=== PATIENT | male | born 1955 | race Caucasian/White ===

== ENCOUNTER 2022-12-19 14:17 | Emergency (ER) | payer MEDICARE, SELFPAY ==
[2022-12-19 14:29] VITALS: BP 153/69; PULSE 62; RESP 16; TEMP 37.1; O2SAT 99
--- NOTE | 2022-12-19 14:41 | ED.SKABFB ---
HPI - Skin/Abscess/Foreign Bdy General Chief complaint: Skin/Abscess/Foreign Body Stated complaint: Hives Time Seen by Provider: 12/19/22 14:40 Source: patient Mode of arrival: ambulatory Limitations: no limitations History of Present Illness HPI narrative: 67 y/o male with hx HTN and DM2, presented for c/o allergic reaction for 2 days. Endorses lip swelling worse yesterday, hoarse voice, and chin swelling with drainage today. Also reports hives to arms, legs and lower abdomen. States he only wanted evaluation because his voice changed today. Patient states he may have been stung by a bee 2 days ago, endorses allergy. Also new to amlodipine since last week, also taking JOHN-I. Currently denies sob, wheezing, dizziness, nausea, vomiting or lethargy. denies difficulty swallowing or maintaining secretions. Taking Benadryl at home, last dose 1230. Related Data Home Medications Medication Instructions Recorded Confirmed aspirin 81 mg tablet,delayed 81 mg PO DAILY 10/21/19 12/12/22 release (Aspir-) omega-3 fatty acids 1,000 mg 1,000 mg PO BID 04/25/20 12/12/22 capsule (Fish Oil Concentrate) trazodone 50 mg tablet 50 mg PO .at bedtime PRN 05/08/21 12/12/22 celecoxib 200 mg capsule 200 mg PO BID 12/19/22 Allergies Allergy/AdvReac Type Severity Reaction Status Date / Time Penicillins Allergy Severe ITCHING Verified 12/12/22 08:46 bee pollen Allergy Hives Verified 12/19/22 14:32 Review of Systems Review of Systems: CONSTITUTIONAL: Denies body aches, fever, chills, or sweats. EYES: Denies visual changes, redness, or discharge. ENT: Denies rhinorrhea, congestion CARDIOVASCULAR: Denies chest pain, palpitations, or edema. RESPIRATORY: Denies cough or dyspnea. GASTROINTESTINAL: Denies abdominal pain, nausea, vomiting, or diarrhea. SKIN: per HPI MUSCULOSKELETAL: Denies back pain, joint pain, or myalgia. NEUROLOGIC: Denies headache, numbness, tingling, or weakness. [facility] Past Medical History Medical History Diverticulitis Screening for colon cancer Surgical History Surgical History History of arthroscopy of right knee Family History Family History Mother Cerebrovascular accident Family history of Alzheimer's disease Family history of heart disease in male family member before age 55 Patient's mother is , Onset Age: 95 Father Family history of malignant neoplasm Other Carcinoma of colon Diabetes mellitus Family history of cardiovascular disease Hypertension Social History Social History Smoking packs per day: 0.75 Smoking cigarettes per day: 15.0 Years smoked: 35 Smoking pack-years: 26.25 Smoking status: Former smoker Tobacco type: cigarettes Second hand tobacco smoke exposure: Yes Smoking end date: 10/14/78 Alcohol intake: current Drinks per week: 2 Alcohol use details: social Substance use: never Substance use type: does not use Lack of Transportation: No Lack of Food: Never True Current Housing: I Have Housing Concerned About Future Housing: No Difficulty Paying Gas/Electric Bills: No Difficulty Paying for Meds: No Currently Unemployed: No Education: Master's Degree or Higher Difficulty w/ Childcare or Family Care: No Comments At time of signature, I have reviewed and agree with nursing past medical, surgical, social and family history unless otherwise noted. Please see nursing chart for further information. There is no relevant family history pertinent to the presenting complaint Exam Narrative: GENERAL: Well-appearing HEAD: Normocephalic, atraumatic. EYES: conjunctivae clear, and EOMI. ENT: Mucous membranes moist. voice mildly hoarse. Oropharynx without edema, erythema or lesions. Lips mildly sw
[2022-12-19] MEDS: methylPREDNISolone SOD SUCC 125 MG VIAL IM (14:48)
== END 2022-12-19 15:02 | disposition home or self-care (01) ==
PROVIDERS: Emergency Provider Nurse Practitioner Family; PCP Internal Medicine
DX: T78.40XA Allergy, unspecified, initial encounter (principal); I10 Essential (primary) hypertension; E11.9 Type 2 diabetes mellitus without complications; Z87.891 Personal history of nicotine dependence
CPT/HCPCS: 99212; G0463; J2930

== ENCOUNTER 2022-12-19 15:20 | Emergency (ER) | payer MEDICARE, SELFPAY ==
--- NOTE | ~2022-12-19 | CT_ITS ---
EXAMINATION: CT soft tissue neck w con DATE: 12/19/2022 17:30 INDICATION: TECHNIQUE: Computed tomography (CT) of the neck was performed with 75 mL Omnipaque-350 intravenous co ntrast. The dose-length product was 639.00 mGy-cm. COMPARISON: None FINDINGS: Subcentimeter right thyroid lobe hypodensity, requiring no additional evaluation. The submandibular and parotid glands are symmetric. There is no cervical lymphadenopathy. There are no masses ident ified. The superior mediastinum is unremarkable. The airway is unremarkable. Parapharyngeal an d pre-glottic fat planes are preserved. Moderate aortic arch calcification. Mild left carotid bifur cation calcified plaque. The orbits are unremarkable. Visualized sinuses and mastoid air cells are well aerated. No significant lung abnormality. There is cervical spondylosis. IMPRESSION: Unremarkable CT soft tissue neck findings. Reviewed, dictated and finalized at location K. [employer]OR SPEECH
[2022-12-19 15:23] VITALS: BP 156/82; PULSE 61; RESP 17; TEMP 36.6; O2SAT 100
--- NOTE | 2022-12-19 15:35 | ECG_ITS ---
Measurements Intervals Ider Rate: 59 P: 66 LA: 205 QRS: -45 QRSD: 113 T: 22 QT: 413 QTc: 412 Interpretive Statements SINUS BRADYCARDIA BORDERLINE AV CONDUCTION DELAY LEFT ANTERIOR FASCICULAR BLOCK BASELINE ARTIFACT- I, III, AVR, AVL, AVF, V1, V3-V6 ABNORMAL ECG NO PREVIOUS ECG AVAILABLE FOR COMPARISON Electronically Signed On 12-19-2022 15:45:22 [employer] by Samir Saab D.O.
--- NOTE | 2022-12-19 15:45 | ED.ALLEREA ---
HPI - Allergic Reaction General Chief complaint: Allergic Reaction Stated complaint: facial swelling Time Seen by Provider: 12/19/22 15:35 History of Present Illness HPI narrative: Patient is a 67-year-old male with a history of hypertension, hyperlipidemia presenting with facial swelling. Patient states that for the last 2 days he has had diffuse hives. States he has been using Benadryl with some relief. States that yesterday his lips looked very swollen and his voice became hoarse. Today, his lips have improved significantly but his voice continues to sound hoarse so he came in for evaluation. He denies tongue or throat swelling. Denies difficulty breathing or shortness of breath. No nausea or vomiting. States he continues to have hives. His is at bedside and states that his voice is starting to sound better. Patient does complain of mild sore throat. No fevers or chills, chest pain, cough, abdominal pain, lightheadedness. Related Data Home Medications Medication Instructions Recorded Confirmed aspirin 81 mg tablet,delayed 81 mg PO DAILY 10/21/19 12/20/22 release (Aspir-) omega-3 fatty acids 1,000 mg 1,000 mg PO BID 04/25/20 12/20/22 capsule (Fish Oil Concentrate) trazodone 50 mg tablet 50 mg PO .at bedtime PRN Sleep 05/08/21 12/20/22 celecoxib 200 mg capsule 200 mg PO BID 12/19/22 12/20/22 Allergies Allergy/AdvReac Type Severity Reaction Status Date / Time Penicillins Allergy Severe ITCHING Verified 12/12/22 08:46 bee pollen Allergy Hives Verified 12/19/22 14:32 Review of Systems Review of Systems: All systems reviewed & are unremarkable except as noted in HPI and below PMFSH Past Medical History Medical History Diverticulitis Screening for colon cancer Surgical History Surgical History History of arthroscopy of right knee Family History Family History Mother Cerebrovascular accident Family history of Alzheimer's disease Family history of heart disease in male family member before age 55 Patient's mother is , Onset Age: 95 Father Family history of malignant neoplasm Other Carcinoma of colon Diabetes mellitus Family history of cardiovascular disease Hypertension Social History Social History Smoking packs per day: 0.75 Smoking cigarettes per day: 15.0 Years smoked: 35 Smoking pack-years: 26.25 Smoking status: Former smoker Tobacco type: cigarettes Second hand tobacco smoke exposure: Yes Smoking end date: 10/14/78 Alcohol intake: current Drinks per week: 1 Alcohol use details: social Substance use: never Substance use type: does not use Lack of Transportation: No Lack of Food: Never True Current Housing: I Have Housing Concerned About Future Housing: No Difficulty Paying Gas/Electric Bills: No Difficulty Paying for Meds: No Currently Unemployed: No Education: Master's Degree or Higher Difficulty w/ Childcare or Family Care: No Living arrangements: with family Spiritual care concerns: No Exam Narrative: GENERAL: Well-appearing, well-nourished, and in no acute distress. HEAD: Normocephalic, atraumatic. EYES: PERRLA and EOMI. ENT: Nares clear, no rhinorrhea or epistaxis. Mucous membranes moist. no lip swelling appreciated, no tongue or throat swelling; voice is mildly hoarse NECK: Supple. CHEST: Clear to auscultation. No respiratory distress. no wheezing HEART: Regular rate and rhythm. Normal peripheral pulses. ABDOMEN: Soft, nontender, nondistended EXTREMITIES: Normal range of motion. No edema. SKIN: Warm, dry, no rash. hives on all extremities and torso; yellow crusting over chin hair NEURO: No focal deficits. Alert and oriented x3. PSYCH: Normal mood and affect. Course
[2022-12-19 15:46] VITALS: BP 158/93; PULSE 59; RESP 12; O2SAT 100
[2022-12-19 15:55] LABS: Hematocrit 48.9 % (42.0-52.0); Hemoglobin 16.2 g/dL (14.0-18.0); Immature Platelet Fraction Pct 11.3 % (0.9-11.2); Mean Corpuscular HGB Conc 33.1 g/dl (32-36); Mean Corpuscular Hemoglobin 32.2 pg (26-34); Mean Corpuscular Volume 97.2 fl (80-100); Red Blood Count 5.03 M/mm3 (4.6-6.20); Red Cell Distribution Width 13.5 % (11.5-14.5); White Blood Count 13.5 K/mm3 (4.5-10.0)
[2022-12-19] MEDS: SODIUM CHLORIDE 0.9% IV 1,000 ML 999 ML IV CONT (16:02)
[2022-12-19] MEDS: FAMOTIDINE 20 MG/2 ML VIAL IV PUSH (16:03)
[2022-12-19 16:20] LABS: Band Neutrophils Percent 1 % (0-6); Eosinophils Absolute Manual 0.13 K/mm3 (0.02-0.5); Eosinophils Percent Manual 1 % (0-4); Lymphocytes Absolute Manual 2.16 K/mm3 (1.1-4.5); Monocytes Absolute Manual 0.67 K/mm3 (0.1-0.90); Monocytes Percent Manual 5 % (3-9); Neutrophils Absolute Manual 10.53 K/mm3 (1.3-6.7); Neutrophils Percent Manual 77 % (46-73); Platelet Estimate Adequate (Adequate); Schistocytes None Seen (NORMAL); Total Cells Counted 100
[2022-12-19 16:21] LABS: Atypical Lymphocytes Present
[2022-12-19 16:22] LABS: Large Platelets Present
[2022-12-19 16:26] LABS: Strep Group A RT-PCR NOT DETECTED (Negative)
[2022-12-19 16:48] VITALS: BP 141/76; PULSE 60; RESP 13; O2SAT 99
[2022-12-19 16:55] LABS: Anion Gap 8 mmol/L (8-16); Blood Urea Nitrogen 15 mg/dL (9-20); Carbon Dioxide 27 mmol/L (22-30); Chloride 100 mmol/L (98-107); Estimated CRCL calculation 66 ml/min; Estimated Glomerular Filt Rate > 60; Glucose 121 mg/dL (65-110); Potassium 5.1 mmol/L (3.4-5.0); Sodium 135 mmol/L (137-145)
[2022-12-19 18:41] VITALS: BP 139/71; PULSE 66; RESP 15; O2SAT 97
[2022-12-19 19:43] VITALS: BP 136/77; PULSE 65; RESP 18; O2SAT 97
== END 2022-12-19 19:45 | disposition home or self-care (01) ==
PROVIDERS: Emergency Provider Emergency Medicine; PCP Internal Medicine
DX: T78.40XA Allergy, unspecified, initial encounter (principal); Z20.822 Contact with and (suspected) exposure to COVID-19; I10 Essential (primary) hypertension; E78.5 Hyperlipidemia, unspecified; Z87.891 Personal history of nicotine dependence; Z79.82 Long term (current) use of aspirin
CPT/HCPCS: 36415; 70491; 80048; 85025; 85055; 87651; 93005; 96361; 96374; 99284; J2930; J7030; Q9967

== ENCOUNTER 2023-01-03 01:03 | Day surgery (SDC) | payer MEDICARE, SELFPAY ==
[2022-12-20 13:06] VITALS: BMI 36.6
--- NOTE | 2023-01-02 16:50 | PM.HPGS ---
History of Present Illness History of Present Illness Consent: Risks, benefits, and alternatives have been discussed and questions answered. Patient agrees to proceed with procedure. Chief complaint: hx colon polyps Narrative: Lennox Beaulieu is a 67 year old male referred for colon cancer screening. He has a history of polyps. His last colonoscopy was about 5 years ago. Review of Systems Review of Systems: All systems reviewed & are unremarkable except as noted in HPI and below PMFSH Past Medical History Medical History COVID-19 virus detected Diverticulitis Essential (primary) hypertension Kidney stones Mixed hyperlipidemia SHAVON on CPAP Screening for colon cancer Type 2 diabetes mellitus without complications Surgical History Surgical History History of arthroscopy of right knee Family History Family History Mother Cerebrovascular accident Family history of Alzheimer's disease Family history of heart disease in male family member before age 55 Patient's mother is , Onset Age: 95 Father Family history of malignant neoplasm Other Carcinoma of colon Diabetes mellitus Family history of cardiovascular disease Hypertension Social History Social History Smoking packs per day: 0.75 Smoking cigarettes per day: 15.0 Years smoked: 35 Smoking pack-years: 26.25 Smoking status: Former smoker Tobacco type: cigarettes Second hand tobacco smoke exposure: Yes Smoking end date: 10/14/78 Alcohol intake: current Drinks per week: 1 Alcohol use details: social Substance use: never Substance use type: does not use Lack of Transportation: No Lack of Food: Never True Current Housing: I Have Housing Concerned About Future Housing: No Difficulty Paying Gas/Electric Bills: No Difficulty Paying for Meds: No Currently Unemployed: No Education: Master's Degree or Higher Difficulty w/ Childcare or Family Care: No Living arrangements: with family Spiritual care concerns: No Meds Home Medications and Allergies Home Medications Medication Instructions Recorded Confirmed Type aspirin 81 mg tablet,delayed 81 mg PO DAILY 10/21/19 12/24/22 History release (Aspir-) omega-3 fatty acids 1,000 mg 1,000 mg PO BID 04/25/20 12/24/22 History capsule (Fish Oil Concentrate) trazodone 50 mg tablet 50 mg PO .at bedtime PRN Sleep 05/08/21 12/24/22 History lisinopril 20 mg tablet 20 mg PO DAILY #90 tabs 11/06/22 12/24/22 Rx metformin 500 mg tablet 500 mg PO BID #180 tabs 11/06/22 12/24/22 Rx rosuvastatin 10 mg tablet See Rx Instructions .Route 11/06/22 12/24/22 Rx .COMPLEX #90 tabs celecoxib 200 mg capsule 200 mg PO BID 12/19/22 12/24/22 History famotidine 20 mg tablet (Pepcid) 20 mg PO DAILY #20 tabs 12/19/22 12/24/22 Rx doxazosin 4 mg tablet (Cardura) 4 mg PO DAILY #30 tabs 12/24/22 01/01/23 Rx Allergies Allergy/AdvReac Type Severity Reaction Status Date / Time amlodipine Allergy Severe Swelling Verified 01/03/23 09:05 of Lip/Tongue/Throat Penicillins Allergy Severe ITCHING Verified 01/03/23 09:05 bee pollen Allergy Hives Verified 01/03/23 09:05 Exam Resp: Auscultation: clear to auscultation bilaterally Cardio: Rate: regular rate Rhythm: regular rhythm GI: GI Palp: Yes Soft to palpation and No Tenderness to palpation present (GI) Assessment and Plan Assessment and plan (1) Screening for colon cancer: Code(s): Z12.11 - Encounter for screening for malignant neoplasm of colon Status: Acute Assessment and Plan: Colonoscopy with possible biopsy or polypectomy or cautery or injection of substances.
--- NOTE | 2023-01-03 07:37 | WPDANESEPPF ---
Anes - Initial Pre Proc Eval Procedure: Operation Date: 01/03/23 10:00 Proposed Procedures p Colonoscopy - Emiliano Belle MD Date/Time: 01/03/23 07:37 Surgeon: Emiliano Belle MD Pre Op Diagnosis: hx colon polyps Patient Data Age: 67 Gender: M Height: 1.7 m Weight: 106 kg Allergies Allergy/AdvReac Type Severity Reaction Status Date / Time amlodipine Allergy Severe Swelling Verified 01/03/23 09:05 of Lip/Tongue/Throat Penicillins Allergy Severe ITCHING Verified 01/03/23 09:05 bee pollen Allergy Hives Verified 01/03/23 09:05 Home Medications Medication Instructions Recorded Confirmed Type aspirin 81 mg tablet,delayed 81 mg PO DAILY 10/21/19 12/24/22 History release (Aspir-) omega-3 fatty acids 1,000 mg 1,000 mg PO BID 04/25/20 12/24/22 History capsule (Fish Oil Concentrate) trazodone 50 mg tablet 50 mg PO .at bedtime PRN Sleep 05/08/21 12/24/22 History lisinopril 20 mg tablet 20 mg PO DAILY #90 tabs 11/06/22 12/24/22 Rx metformin 500 mg tablet 500 mg PO BID #180 tabs 11/06/22 12/24/22 Rx rosuvastatin 10 mg tablet See Rx Instructions .Route 11/06/22 12/24/22 Rx .COMPLEX #90 tabs celecoxib 200 mg capsule 200 mg PO BID 12/19/22 12/24/22 History famotidine 20 mg tablet (Pepcid) 20 mg PO DAILY #20 tabs 12/19/22 12/24/22 Rx doxazosin 4 mg tablet (Cardura) 4 mg PO DAILY #30 tabs 12/24/22 01/01/23 Rx Patient hx anesthesia problems: none Family hx anesthesia problems: none Results Review: All pre-operative results and documents have been reviewed as part of the pre-operative evaluation. [facility] Past Medical History Medical History (Updated 12/24/22 @ 15:06 by Arleen Palacio MD) COVID-19 virus detected Diverticulitis Essential (primary) hypertension Kidney stones Mixed hyperlipidemia SHAVON on CPAP Screening for colon cancer Type 2 diabetes mellitus without complications Surgical History Surgical History History of arthroscopy of right knee Family History Family History Mother Cerebrovascular accident Family history of Alzheimer's disease Family history of heart disease in male family member before age 55 Patient's mother is , Onset Age: 95 Father Family history of malignant neoplasm Other Carcinoma of colon Diabetes mellitus Family history of cardiovascular disease Hypertension Social History Social History Smoking packs per day: 0.75 Smoking cigarettes per day: 15.0 Years smoked: 35 Smoking pack-years: 26.25 Smoking status: Former smoker Tobacco type: cigarettes Second hand tobacco smoke exposure: Yes Smoking end date: 10/14/78 Alcohol intake: current Drinks per week: 1 Alcohol use details: social Substance use: never Substance use type: does not use Lack of Transportation: No Lack of Food: Never True Current Housing: I Have Housing Concerned About Future Housing: No Difficulty Paying Gas/Electric Bills: No Difficulty Paying for Meds: No Currently Unemployed: No Education: Master's Degree or Higher Difficulty w/ Childcare or Family Care: No Living arrangements: with family Spiritual care concerns: No Anes - Eval Final PreProcedure Day of Procedure 01/03/23 07:37 Patient weight: obese Heart: regular rate and rhythm Lungs: clear to auscultation Airway: Mallampati scale class II Neurological: alert and oriented Last oral intake: >/= 8 hours ASA classification: III Emergent: no Anesthetic plan: proceed Anesthesia type and monitoring: general GIVS and standard monitoring Results Review: All pre-operative results and documents have been reviewed as part of the pre-operative evaluation. Informed Consent: The patient's anesthetic plan and its attendant risks and benefits were discussed with the patient/family/POA.
[2023-01-03 09:09] VITALS: BP 108/52; PULSE 65; RESP 18; TEMP 36.5; O2SAT 98
[2023-01-03] MEDS: LACTATED RINGERS 1,000 ML 150 ML IV CONT (09:26)
[2023-01-03 09:30] LABS: Glucose Point of Care 130 mg/dl (65-105)
[2023-01-03 10:12] VITALS: BP 99/59; PULSE 49; RESP 18; O2SAT 93
[2023-01-03 10:22] VITALS: BP 99/64; PULSE 48; RESP 16; O2SAT 96
[2023-01-03 10:31] VITALS: BP 116/71; PULSE 49; RESP 16; O2SAT 97
== END 2023-01-03 10:34 | disposition home or self-care (01) ==
PROVIDERS: PCP Internal Medicine; Visit Provider Internal Medicine Gastroenterology
PROC: 0DJD8ZZ Inspection of Lower Intestinal Tract, Via Natural or Artificial Opening Endoscopic (ICD-10-PCS; CPT 45378; principal; 2023-01-03 10:00)
DX: Z12.11 Encounter for screening for malignant neoplasm of colon (principal); K57.30 Diverticulosis of large intestine without perforation or abscess without bleeding; Z86.010 Personal history of colon polyps; I10 Essential (primary) hypertension; E11.9 Type 2 diabetes mellitus without complications; E78.2 Mixed hyperlipidemia; G47.33 Obstructive sleep apnea (adult) (pediatric); Z87.891 Personal history of nicotine dependence; Z79.84 Long term (current) use of oral hypoglycemic drugs; Z79.82 Long term (current) use of aspirin; E66.9 Obesity, unspecified; Z68.34 Body mass index [BMI] 34.0-34.9, adult
CPT/HCPCS: G0105; 82948; J2001; J2704; J7120

== ENCOUNTER 2024-06-23 08:31 | Outpatient (CLI) | payer MEDICARE, SELFPAY ==
--- NOTE | ~2024-06-23 | CT_ITS ---
EXAMINATION:CT lung screening DATE: 06/23/2024 08:58 INDICATION: Personal history of nicotine dependence. Smoker who quit 14 years ago with 23 pack year h istory. TECHNIQUE: Computed tomography (CT) of the chest was performed without intravenous contrast. Automate d exposure control and iterative reconstruction technique were employed. The dose-length product (DLP ) was 276.99 mGy-cm. COMPARISON: None. FINDINGS: Calcified right lung nodules and calcified right hilar mediastinal lymph nodes are consiste nt with old granulomatous disease. There are 4 mm and 2 mm nodules in the lingula. No pleural effusio n. The heart size is normal. There are coronary artery calcifications. No pericardial effusion. There is a 10 mm nodule in right thyroid lobe, likely not clinically significant. Calcifications in the li iona and spleen are consistent with old granulomatous disease. There are old healed right rib fracture s. There is mild thoracic spondylosis and severe cervical spondylosis. IMPRESSION: 1. Lung-RADS category 2: Benign appearance or behavior. Continue annual screening with noncontrast lo w-dose chest CT in 12 months. Reviewed, dictated and finalized at location A. IMPRESSION: 1. Lung-RADS category 2: Benign appearance or behavior. Continue annual screeni ng with noncontrast low-dose chest CT in 12 months.
== END 2024-06-23 08:32 | disposition home or self-care (01) ==
LOC: ANHIMG 08:33
PROVIDERS: PCP Nurse Practitioner Family; Visit Provider Nurse Practitioner Family
DX: Z12.2 Encounter for screening for malignant neoplasm of respiratory organs (principal); Z87.891 Personal history of nicotine dependence
CPT/HCPCS: 71271

== ENCOUNTER 2025-06-24 09:34 | Outpatient (CLI) | payer MEDICARE, SELFPAY ==
--- NOTE | ~2025-06-24 | CT_ITS ---
EXAMINATION:CT lung screening DATE: 06/24/2025 09:50 INDICATION: Personal history of nicotine dependence. Smoker who quit 14 years ago with 20 pack year history. TECHNIQUE: Computed tomography (CT) of the chest was performed without intravenous contrast. Automated exposure control and iterative reconstruction technique were employed. The dose-length product (DLP) was 279.43 mGy-cm. COMPARISON: Chest CT 06/23/2024 FINDINGS: Calcified pulmonary nodules and calcified right hilar and mediastinal lymph nodes are consistent with old granulomatous disease. There is mild atelectasis bilaterally. There is a 3 mm nodule in left lower lobe. There are 3 mm and 4 mm nodules in lingula without change. No pleural effusion. The heart size is normal. No pericardial effusion. There are coronary artery calcifications. There is mild bilateral gynecomastia. Calcifications in the spleen are consistent with old granulomatous disease. There are old healed right rib fractures. There is moderate thoracic spondylosis. IMPRESSION: 1. Lung-RADS category 2: Benign appearance or behavior. Continue annual screening with noncontrast low-dose chest CT in 12 months. Reviewed, dictated and finalized at location E. IMPRESSION: 1. Lung-RADS category 2: Benign appearance or behavior. Continue annual screeni ng with noncontrast low-dose chest CT in 12 months.
--- OUTSIDE RECORDS SUMMARY | 2025-06-24 10:21 | XMS_ITS | Clinical Summary ---
Author Organization [facility] [address] Address [address] [place] [id number] Care Team Providers Care Senior Qc Technician Name Role Phone Shantel Montague NP Primary Care Provider [phone] Allergies Active Allergy Reactions Criticality Noted Date Comments Penicillins Venom-Honey Bee Medications hydroCHLOROthia zide (HYDRODIURIL) 25 mg tablet Take 1 tablet (25 mg total) by mouth daily 5 Active lisinopriL (PRINIVIL,ZESTR IL) 20 mg tablet Take 1 tablet (20 mg total) by mouth daily 5 Active celecoxib (CeleBREX) 200 mg capsule Take 1 capsule (200 mg total) by mouth 2 (two) times a day 5 Active metFORMIN (GLUCOPHAGE) 500 mg tablet Take 1 tablet (500 mg total) by mouth 2 (two) times a day 5 Active rosuvastatin (CRESTOR) 10 mg tablet Take 1 tablet (10 mg total) by mouth daily 5 Active traZODone (DESYREL) 50 mg tablet Take 1 tablet (50 mg total) by mouth nightly 5 Active xvknzlpj-yssl-z in-folic acid 18-0.4 mg tablet Take by mouth Active omega-3 fatty acids-fish oil 300-1,000 mg capsule Take 2 capsules (2 g total) by mouth daily Active aspirin 81 mg enteric coated tablet Take 1 tablet (81 mg total) by mouth daily Active amoxicillin 500 mg capsule TAKE 1 CAPSULE BY MOUTH EVERY 8 HOURS FOR 5 DAYS 5 Active chlorhexidine (PERIDEX) 0.12 % oral rinse RINSE AND SPIT 15ML BY MOUTH TWICE DAILY AFTER BREAKFAST AND BEFORE BEDTIME Active Active Problems Problem Noted Date Diagnosed Date Bradycardia 05/17/2025 Intraventricular conduction delay 05/17/2025 Encounters Date Type Department Care Team Description 06/07/2025 8:45 AM CDT Office Visit [facility] Cardiology [address] [place] [phone] Leon Go MD Bradycardia (Primary Dx) 05/27/2025 8:15 AM CDT Ancillary Procedure [facility] Cardiology at [address] [place] [address] Intraventricular conduction delay 05/17/2025 11:30 AM CDT Office Visit [facility] Cardiology [address] [place] [phone] Leon Go MD Lipid screening (Primary Dx); Bradycardia; Intraventricular conduction delay from Last 3 Months Surgical History Surgery Date Site/Laterality Comments KIDNEY STONE SURGERY MENISCUS SURGERY Medical History Medical History Date Comments Diabetes (HCC) Hypertension Hyperlipemia Family History Medical History Relation Name Comments Colon cancer Father Relation Name Status Comments Father Social History Tobacco Use Types Packs/Day Years Used Date Smoking Tobacco: Former Cigarettes Q uit: 05/17/2000 Passive Smoke Exposure: Past Smokeless Tobacco: Former Chew Tobacco Cessation:Counseling Given: Not Answered Sex and Gender Information Value Date Recorded Sex Assigned at Not on file 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 Gender Identity Not on file Sexual Orientation Not on file Obstetrics History Last Filed Vital Signs Vital Sign Reading Time Taken Comments Blood Pressure 108/62 06/07/2025 8:23 AM CDT Pulse 50 06/07/2025 8:23 AM CDT Temperature - - Respiratory Rate 20 06/07/2025 8:23 AM CDT Oxygen Saturation 94% 06/07/2025 8:23 AM CDT Inhaled Oxygen Concentration - - Weight 99.8 kg (220 lb) 06/07/2025 8:23 AM CDT Height 170.2 cm (5' 7) 05/17/2025 11:22 AM CDT Body Mass Index 34.46 05/17/2025 11:22 AM CDT Plan of Treatment Health Maintenance Due Date Last Done Comments Colon Cancer Screening-Colonoscopy 1955 Depression Screening 1955 Fall Risk Assessment 1955 Hepatitis C Screening 1955 Prostate Cancer Screening-PSA 1955 DTaP/Tdap/Td Vaccine (1 - Tdap) 1966 Hepatitis B Screening 1973 Abdominal Aortic Aneurysm (A AA) Screen 2020 12/14/2015 Well Visit 65+ 2020 Covid-19 Vaccine (7 - 2023-2 5 season) 2025 08/28/2024, 08/14/2023, 09/12/2022, Additional history exists Influenza Vaccine (#1) 2025 , 08/14/2023, 08/02/2022 Pneumococcal vaccine 65+ Completed 08/14/2023 Zoster Vaccine Completed 02/24/2024, 11/05/2023 Procedures Procedure Name Priority Date/Time Associated Diagnosis Comments NM MPI SPECT (REST AND/OR STRESS) MULTIPLE STUDIES Schedule Routine, Read Routine (OP Routine) 05/27/2025 9:09 AM CDT Intraventricular conduction delay POCT LIPID PANEL Routine 05/17/2025 11:23 AM CDT Lipid screening ELECTROCARDIOGRAM REPORT Routine 05/17/[address] ABDOMEN PELVIS W CONTRAST Routine 12/14/2015 2:40 PM WATER TAXI FERRY OPERATOR from Last 3 Months or Most Recently Relevant to Health Maintenance Results * NM MPI SPECT (Rest and/or Stress) Multiple Studies (05/27/2025 9:09 AM CDT) Anatomical Region Laterality Modality Body N/A Electrocardiogra phy 05/27/2025 8:15 AM CDT Narrative 05/27/2025 4:50 PM CDT [facility]iology [address], [place] [address] [address] [facility] [address], [place] [address] [address], [place] [address] P:[phone] P:[phone] MPI Imaging Report Patient Name: GALEN BEAULIEU R : 1955 Study Date: 05/27/2025 8:15:00 AM Gender: M Tech: [facility] Location: [facility] Provider: LEON GO Height(Cm): 170.2 BSA: Weight(Kg): 102.1 Heart Rate: 128 BMI: 35.25 Order Provider: LEON GO PHYSICIAN: Primary Care Physician: Shantel Montague NP. [facility] Physician: Leon Go M.D.,F.A.C.C. Stress Supervision: Pérez Leung M.D. Stress Interpreting Physician: Pérez Leung M.D. Image Interpreting Physician: Pérez Leung M.D. PROCEDURES: Pharmacologic SPECT Report: Myocardial perfusion imaging with Tc99M Sestamibi SPECT at rest and stress post regadenoson (Lexiscan) infusion. INDICATIONS: Bradycardia, Hypertension, Diabetes, High Cholesterol, Former Smoker, and I45.9 Conduction disorder, unspecified. FINDINGS: Procedural Findings: One day rest/stress was used. Tc99m Sestamibi injected IV at rest was 12.3 millicuries 37.1 millicuries of Tc99M Sestamibi injected IV during Lexiscan stress Lexiscan 0.4mg given IV over 10 seconds with low level exercise: 1.2 MPH Patient had no symptoms during stress test. Baseline heart rate was 48 BPM Maximum Heart Rate Achieved was: 66 BPM Baseline blood pressure was 117/88 mmHg Post Stress Blood Pressure was 131/68 mmHg Termination: Protocol complete. Resting ECG: Sinus bradycardia, IVCD. Cannot r/o anterior infarct - age uncertain. Post ECG: No diagnostic ST changes. Arrhythmia: No arrhythmias seen. Perfusion Findings: Normal perfusion imaging. No definite fixed or reversible defects. Technical quality of study is excellent. Left ventricle cavity size at rest is normal. Left ventricle cavity size with stress is unchanged. A TID of 1.06 was automatically calculated. LV Function: Global left ventricular function is normal. Left ventricular ejection fraction is 61 %. CONCLUSIONS: Global left ventricular function is normal. Left ventricular ejection fraction is 61 %. Myocardial perfusion imaging is normal. Negative EKG portion of stress test. Attenuation correction utilized for the interpretation of this study. Electronically Signed By: Rico Leung MD 05/27/2025 4:47:56 PM CDT Electronically Signed By: Rico Leung MD 05/27/2025 4:47:56 PM CDT Procedure Note Rico Leung MD - 05/27/2025 [facility]iology [address] [facility] [address] [address] [address] [facility] [address], [place] [address] [address] [place] [address] P:[phone] P:[phone] MPI Imaging Report Patient Name: GALEN BEAULIEU R : 1955 Study Date: 05/27/2025 8:15:00 AM Gender: M Tech: [facility] Location: [facility] Provider: LEON GO Height(Cm): 170.2 BSA: Weight(Kg): 102.1 Heart Rate: 128 BMI: 35.25 Order Provider: LEON GO PHYSICIAN: Primary Care Physician: Shantel Montague NP. [facility] Physician: Leon Go M.D.,F.A.C.C. Stress Supervision: Pérez Leung M.D. Stress Interpreting Physician: Pérez Leugn M.D. Image Interpreting Physician: Pérez Leung M.D. PROCEDURES: Pharmacologic SPECT Report: Myocardial perfusion imaging with Tc99M Sestamibi SPECT at rest and stresspost regadenoson (Lexiscan) infusion. INDICATIONS: Bradycardia, Hypertension, Diabetes, High Cholesterol, Former Smoker, andI45.9 Conduction disorder, unspecified. FINDINGS: Procedural Findings: One day rest/stress was used. Tc99m Sestamibi injected IV at rest was 12.3 millicuries 37.1 millicuries of Tc99M Sestamibi injected IV during Lexiscan stress Lexiscan 0.4mg given IV over 10 seconds with low level exercise: 1.2MPH Patient had no symptoms during stress test. Baseline heart rate was 48 BPM Maximum Heart Rate Achieved was: 66 BPM Baseline blood pressure was 117/88 mmHg Post Stress Blood Pressure was 131/68 mmHg Termination: Protocol complete. Resting ECG: Sinus bradycardia, IVCD. Cannot r/o anterior infarct - age uncertain. Post ECG: No diagnostic ST changes. Arrhythmia: No arrhythmias seen. Perfusion Findings: Normal perfusion imaging. No definite fixed or reversible defects.Technical quality of study is excellent. Left ventricle cavity size at rest is normal. Leftventricle cavity size with stress is unchanged. A TID of 1.06 was automaticallycalculated. LV Function: Global left ventricular function is normal. Left ventricular ejectionfraction is 61 %. CONCLUSIONS: Global left ventricular function is normal. Left ventricular ejectionfraction is 61 %. Myocardial perfusion imaging is normal. Negative EKG portion of stress test. Attenuation correction utilized for the interpretation of this study. Electronically Signed By: Rico Leung MD 05/27/2025 4:47:56 PM CDT Electronically Signed By: Rico Leung MD 05/27/2025 4:47:56 PM CDT Leon Go MD [facility] PROCEDURES Final Result * (ABNORMAL) POCT lipid panel (05/17/2025 11:23 AM CDT) Cholesterol, POC 135 <200 MG/DL HDL, POC 37(A) >=40 mg/dL Triglycerides, POC 221(A) <=149 mg/dL LDL Cholesterol POC 53 <=129 mg/dL Chol/HDL Ratio, POC 3.6 NONE Non-HDL Cholesterol, POC 98 NONE mg/dL Cholesterol Total, POC 135 30 - 199 mg/dL Capillary blood 05/17/2025 1 1:23 AM CDT Leon Go MD POINT OF CARE TEST ORDER SILVERIO Final Result * Electrocardiogram Report (05/17/2025) 05/17/2025 Leon Go MD ECG ORDERABLES Final Re sult * CT Abdomen Pelvis W Contrast (12/14/2015 2:40 PM WATER TAXI FERRY OPERATOR) Anatomical Region Laterality Modality Body N/A Computed Tomogra phy 12/14/2015 2:40 PM WATER TAXI FERRY OPERATOR Narrative 12/14/2015 6:21 PM WATER TAXI FERRY OPERATOR EXAM: CT ABDOMEN, AND PELVIS WITH CONTRAST. HISTORY: Severe lower abdominal pain, left flank area. Patient had renal stents placed Saturday, surgery . Dressing to left flank bloody. Nephrolithiasis. History of renal artery stent. Back pain. Status post left percutaneous nephrolithotomy in the last couple of weeks. TECHNIQUE: CT abdomen, and pelvis was performed following administration of 92 mL of Optiray 350 intravenously. No oral contrast as requested. Of note, because the PACS system with nonfunctional this afternoon, the study was not made available for review and interpretation until about 6:00 PM. COMPARISONS: 12/07/2015 FINDINGS: Lung bases: Moderate bibasilar atelectasis, with slight improvement. Liver: Fatty infiltration. Gallbladder/biliary:Unremarkable. Spleen: Calcified granulomas. Adrenal glands: Unremarkable. Pancreas: Unremarkable. Kidneys: There has been interval apparent replacement of the left percutaneous nephrostomy which has a distal pigtail extending to the region of the left renal pelvis. The left ureteral stent has probably also been replaced previously exiting the nephrostomy and now separate from the nephrostomy with the proximal pigtail in the region of the renal pelvis and the distal pigtail more inferiorly in the bladder. A large central cystic structure presumably a parapelvic cyst persists at the left kidney. There is development of a moderate-sized extensive mixed density collection in the subcapsular space of the left kidney--presumably a subcapsular hematoma. At its largest point the hematoma measures about 3 cm in thickness surrounding most of the kidney. On the delayed images, there is no appreciable excretion of contrast in the left collecting system although the collecting system is nondilated. Therefore, there is suggestion of diminished left renal function although not necessarily postobstructive but perhaps due to compression by the hematoma? There are multiple small stone fragments again seen in the lower pole the left kidney, 2 of which are along the left nephrostomy tube in the left renal parenchyma measuring 2 to 3 mm. The rest of the stones in the left lower pole are slightly different in position but in general the same location as before. There are no definite ureteral stones. Metallic markers jason the proximal and distal aspects of the left ureteral stent. There is decreasing fluid and infiltrative changes in the left retroperitoneum around the left kidney and left ureter. Decreasing fluid and wispy change in the pelvis on the right as well. The right kidney is unremarkable. Bladder: The distal left ureteral stent extends further into the bladder than before, likely a new stent which is repositioned. The Phipps catheter has been removed. No definite bladder calculi. Reproductive: Trace prostatic calcification. Bowel: Extensive colonic diverticulosis without definite new inflammatory change. Appendix is unremarkable. Vascular/aorta: Mild atherosclerosis. Lymph nodes: No adenopathy. Peritoneum: As noted above, decreasing fluid and inflammatory changes or merely along the left retroperitoneum. Resolution of small amount of pelvic free fluid. Mild presacral edema is present. Abdominal wall: No hernia identified. Bone windows: Degenerative disc disease at L5-S1. IMPRESSION: 1. Revision of left percutaneous nephrostomy and left ureteral stent which appear to have been replaced/repositioned since 12/07/2015. 2. Development of subcapsular hematoma surrounding most of the left kidney. 3. Diminished left renal function with delayed excretion into the collecting system. No associated hydronephrosis. Question whether this is related to the subcapsular hematoma. 4. Slight repositioning of small stone fragments lower pole left kidney. 5. Resolving mild pelvic ascites. Decreasing fluid and inflammatory changes predominating along the left retroperitoneum and pelvis. 6. Additional details above. Above report self corrected for the Emergency Department. Electronically signed by: Milli Stone M.D. Radiologist: MILLI STONE MD Attending: UNKNOWN, NOTINFILE Requesting: TITO SOOD Requesting Fax: N/A Requesting ID: [id number] Attending Attending ID: [id number] Completed Time: 12/14/2015 2:40 PM Dictated Time: 12/14/2015 6:21 PM Transcribed Time: 12/14/2015 6:21 PM Signed by: MILLI STONE MD on 12/14/2015 6:21 PM Report To 1 ID: Report To 1 Name: , Report To 1 FAX: Report To 2 ID: Report To 2 Name: , Report To 2 FAX: Report To 3 ID: Report To 3 Name: , Report To 3 FAX: NextGen Order #: Procedure Note Provider, MD Denzel - 02/17/2017 EXAM: CT ABDOMEN, AND PELVIS WITH CONTRAST. HISTORY: Severe lower abdominal pain, left flank area. Patient had renal stents placed Saturday, 2nd surgery . Dressing to left flank bloody. Nephrolithiasis. History of renal artery stent. Back pain. Status post left percutaneous nephrolithotomy in the last couple of weeks. TECHNIQUE: CT abdomen, and pelvis was performed following administration of 92 mL of Optiray 350 intravenously. No oral contrast as requested. Of note, because the PACS system with nonfunctional this afternoon, the study was not made available for review and interpretation until about 6:00 PM. COMPARISONS: 12/07/2015 FINDINGS: Lung bases: Moderate bibasilar atelectasis, with slight improvement. Liver: Fatty infiltration. Gallbladder/biliary:Unremarkable. Spleen: Calcified granulomas. Adrenal glands: Unremarkable. Pancreas: Unremarkable. Kidneys: There has been interval apparent replacement of the left percutaneous nephrostomy which has a distal pigtail extending to the region of the left renal pelvis. The left ureteral stent has probably also been replaced previously exiting the nephrostomy and now separate from the nephrostomy with the proximal pigtail in the region of the renal pelvis and the distal pigtail more inferiorly in the bladder. A large central cystic structure presumably a parapelvic cyst persists at the left kidney. There is development of a moderate-sized extensive mixed density collection in the subcapsular space of the left kidney--presumably a subcapsular hematoma. At its largest point the hematoma measures about 3 cm in thickness surrounding most of the kidney. On the delayed images, there is no appreciable excretion of contrast in the left collecting system although the collecting system is nondilated. Therefore, there is suggestion of diminished left renal function although not necessarily postobstructive but perhaps due to compression by the hematoma? There are multiple small stone fragments again seen in the lower pole the left kidney, 2 of which are along the left nephrostomy tube in the left renal parenchyma measuring 2 to 3 mm. The rest of the stones in the left lower pole are slightly different in position but in general the same location as before. There are no definite ureteral stones. Metallic markers jason the proximal and distal aspects of the left ureteral stent. There is decreasing fluid and infiltrative changes in the left retroperitoneum around the left kidney and left ureter. Decreasing fluid and wispy change in the pelvis on the right as well. The right kidney is unremarkable. Bladder: The distal left ureteral stent extends further into the bladder than before, likely a new stent which is repositioned. The Phipps catheter has been removed. No definite bladder calculi. Reproductive: Trace prostatic calcification. Bowel: Extensive colonic diverticulosis without definite new inflammatory change. Appendix is unremarkable. Vascular/aorta: Mild atherosclerosis. Lymph nodes: No adenopathy. Peritoneum: As noted above, decreasing fluid and inflammatory changes or merely along the left retroperitoneum. Resolution of small amount of pelvic free fluid. Mild presacral edema is present. Abdominal wall: No hernia identified. Bone windows: Degenerative disc disease at L5-S1. IMPRESSION: 1. Revision of left percutaneous nephrostomy and left ureteral stent which appear to have been replaced/repositioned since 12/07/2015. 2. Development of subcapsular hematoma surrounding most of the left kidney. 3. Diminished left renal function with delayed excretion into the collecting system. No associated hydronephrosis. Question whether this is related to the subcapsular hematoma. 4. Slight repositioning of small stone fragments lower pole left kidney. 5. Resolving mild pelvic ascites. Decreasing fluid and inflammatory changes predominating along the left retroperitoneum and pelvis. 6. Additional details above. Above report self corrected for the Emergency Department. Electronically signed by: Milli Stone M.D. Radiologist: MILLI STONE MD Attending: CHICA LOPEZ Requesting: TITO SOOD Requesting Fax: N/A Requesting ID: [id number] Attending Attending ID: [id number] Completed Time: 12/14/2015 2:40 PM Dictated Time: 12/14/2015 6:21 PM Transcribed Time: 12/14/2015 6:21 PM Signed by: MILLI STONE MD on 12/14/2015 6:21 PM Report To 1 ID: Report To 1 Name: , Report To 1 FAX: Report To 2 ID: Report To 2 Name: , Report To 2 FAX: Report To 3 ID: Report To 3 Name: , Report To 3 FAX: NextGen Order #: Historical Provider MD CLE[facility] CT PROCEDURES Final R esult from Last 3 Months or Most Recently Relevant to Health Maintenance Insurance MEDICARE [employer] S[employer]IOR [employer]MENT Care Teams Senior Qc Technician Relationship Specialty Start Date End Date Shantel Montague NP [address] [place] [address] PCP - General Nurse Practitioner 02/01/25
== END 2025-06-24 09:35 | disposition home or self-care (01) ==
PROVIDERS: PCP Nurse Practitioner Family; Visit Provider Nurse Practitioner Family
DX: Z12.2 Encounter for screening for malignant neoplasm of respiratory organs (principal); Z87.891 Personal history of nicotine dependence
CPT/HCPCS: 71271